=== PATIENT | female | born 1955 | race Caucasian/White ===

== ENCOUNTER 2017-08-19 13:38 | Observation (INO) ==
[2017-08-19] MEDS ORDERED: Aspirin 81 MG TAB.CHEW PO ONE (14:15)
--- NOTE | 2017-08-19 14:37 | Emergency Department Note ---
START Narrative - START START: I examined this patient and my medical decision-making was reviewed with the Resident Physician. I agree with the documented findings, disposition and treatment plan as described except to the extent set forth below. 61 year old female presents to the ED with complaints of left arm and jaw pain she has a hstory of mitral valave prolapse and aortic regurg. 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 Sakina khan she sees Dr. Pineda and that she called his office today because ofhte chest pain onset from yesterday and she was told by the nurse to come and be evaluated in the ED. peterson states that pain is still there, denies all other risk facotrs and states that she does not have exertinoal dyspnea, dispahoresis, or nasuea and vomitting with these symptoms. we ill do a cardiopulmoary workup on peterson and re-eval.
[2017-08-19] MEDS: Nitroglycerin 0.4 MG TAB.SUBL SL ONE ×2 (15:01→17:32)
[2017-08-19 15:11] LABS: Basophils % 0.7 %; Eosinophils # 0.2 K/mcL (0.0-0.6); Eosinophils % 3.8 %; Hematocrit 42.6 % (35.3-44.9); Hemoglobin 14.7 g/dL (11.5-15.4); Immature Granulocytes % 0.2 % (0-4); Lymphocytes # 1.8 K/mcL (0.6-4.6); Mean Corpuscular HGB Conc 34.5 g/dL (31.6-35.5); Mean Corpuscular Hemoglobin 30.3 pg (28.0-33.3); Mean Corpuscular Volume 87.8 fL (83.0-100.0); Mean Platelet Volume 10.8 fL (9.4-12.4); Monocytes # 0.4 K/mcL (0.0-1.3); Monocytes % 6.9 %; Neutrophils # 3.1 K/mcL (1.6-8.9); Platelet Count 187 K/mcL (140-400); Red Blood Count 4.85 M/mcL (3.82-4.97); Red Cell Distribution Width 13.5 % (11.5-14.5); Segmented Neutrophils % 56.4 %
--- NOTE | 2017-08-19 15:13 | Emergency Department Note ---
Disposition Clinical Impression: Unstable angina, Hypokalemia Disposition: Admitted As Inpatient Condition: Fair Time of Disposition: 17:12 Chest Pain HPI - General Chief Complaint: ED Chest Pain Stated Complaint: Left arm/Jaw PAin Time Seen by Provider: 08/19/17 14:10 Source: patient Limitations: no limitations Vital Signs Reviewed: Yes Nursing Notes Reviewed: Yes - History of Present Illness HPI Narrative: Patient is a 61-year-old female complains of acute onset of chest pain that started 1 week ago but has increased in frequency and intensity over the past 3 days. Patient states it comes on randomly with and without exertion. Patient states the most recent bout started this morning before 6 AM and has persisted. Patient describes the pain as pressure up her left upper chest with radiation to her left side jaw and down her left arm with numbness and tingling in her left hand. She also states that she has some episodes of chest pain with shortness of breath, nausea, vomiting. Patient denies history of mild aortic and mitral insufficiency, hypertension, hyperlipidemia, diabetes, tobacco use. Severity scale (1-10): 7 - Related Data Home Medications Medication Instructions Recorded Confirmed Albuterol Sulfate [Albuterol 2 puff IH Q4H PRN 10/13/16 08/19/17 Inhaler] Ascorbic Acid [Vitamin C] 1,000 mg PO DAILY 10/13/16 08/19/17 Butorphanol Tartrate 1 spray NS Q24H PRN 10/13/16 08/19/17 Bee Alive 1 cap PO DAILY 08/19/17 08/19/17 Calcium Carbonate [Calcium] 600 mg PO DAILY 08/19/17 08/19/17 Cholecalciferol (D-3) [Vitamin D] 5,000 unit PO DAILY 08/19/17 08/19/17 Cyanocobalamin (Vitamin B-12) 1,000 mcg PO DAILY 08/19/17 08/19/17 [Vitamin B12] EPINEPHrine [Epipen] 0.3 mg IM ONCE PRN 08/19/17 08/19/17 Ferrous Sulfate 325 mg PO DAILY 08/19/17 08/19/17 Lutein/Bilberry 1 cap PO DAILY 08/19/17 08/19/17 Magnesium Amino Acid Chelate 300 mg PO DAILY 08/19/17 08/19/17 [Magnesium] Riboflavin 400 mg PO BID 08/19/17 08/19/17 Topiramate [Trokendi Xr] 200 mg PO DAILY 08/19/17 08/19/17 Allergies Allergy/AdvReac Type Severity Reaction Status Date / Time tramadol Allergy Severe Agitated Verified 02/04/15 11:58 Cefaclor [From Ceclor] Allergy See Verified 02/04/15 11:58 Comments cephalexin [From Keflex] Allergy Rash Verified 02/04/15 11:58 codeine Allergy See Verified 02/04/15 11:58 Comments Erythromycin Base Allergy Rash Verified 02/04/15 11:58 pantoprazole Allergy Shakiness Verified 02/04/15 11:58 Penicillins [PCN] Allergy Rash Verified 02/04/15 11:58 sulfamethoxazole Allergy Rash Verified 02/04/15 11:58 [From Bactrim] terbutaline [From Brethine] Allergy See Verified 02/04/15 11:58 Comments trimethoprim [From Bactrim] Allergy Rash Verified 02/04/15 11:58 vancomycin Allergy Rash Verified 02/04/15 11:58 venom-honey bee Allergy See Verified 02/04/15 11:58 [bee venom (honey bee)] Comments All systems ED: reviewed and negative except as stated. Review of Systems: As Per HPI Constitutional: Denies: fever, chills, weakness Eyes: Denies: vision change Cardiovascular: Reports: chest pain. Denies: palpitations Respiratory: Reports: dyspnea. Denies: cough, wheezes Gastrointestinal: Reports: nausea. Denies: abdominal pain, vomiting, diarrhea Chest Pain PMH - Past Medical History Medical history: Reports: asthma, GERD, glaucoma, hypertension, migraine, valvular heart disease, other Surgical history: Reports: hysterectomy, orthopedic, other (Right arm fracture, right shoulder arthroscopy) Psychiatric history: Reports: anxiety, depression DISTRICT ADVISER history: Reports: no DISTRICT ADVISER history - Social History Smoking Status: Former smoker Alcohol use: Reports: none Drug use: Reports: none Physical Exam Vital Signs Temperature 98.3 F 08/19/17 14:03 Pulse Rate 85 08/19/17 14:03 Respiratory Rate 18 08/19/17 14:03 Blood Pressure 112/62 08/19/17 14:03 O2 Sat by Pulse Oximetry 97 08/19/17 14:03 Temperature 98.3 F 08/19/17 14:03 Pulse Rate 85 08/19/17 14:03 Respiratory Rate 18 08/19/17 14:03 Blood Pressure 112/62 08/19/17 14:03 O2 Sat by Pulse Oximetry 97 08/19/17 14:03 Oxygen Delivery Oxygen Delivery Room Air CONSTITUTIONAL: Well-appearing; well-nourished; A&O X 3, in no apparent distress. She has no conversational dyspnea. HEAD: Normocephalic; atraumatic EYES: PERRL, no scleral icterus NOSE: The nose is normal in appearance without rhinorrhea NECK: No JVD or distended neck veins RESP: Normal chest excursion with respiration; breath sounds clear and equal bilaterally; no wheezes, rhonchi, or rales CARD: Regular rhythm, without murmurs, rub or gallop Chest: Nontender to palpation ABD: Non-distended; non-tender, soft, without rigidity, rebound or guarding,no pulsatile mass SKIN: Normal for age and race; warm and dry without diaphoresis ; no apparent lesions EXTREMITIES: Pulses are 2 plus and equal times 4 extremities, no peripheral edema or calf muscle pain - General Limitations: no limitations General appearance: alert Course - Reevaluation(s) Reevaluation #1: Both the patient's labs are in, but still trying to get the patient pain-free currently 3/10. She refused nitroglycerin when my nurse tried to administer pain that her blood pressure is normally low. Her blood pressure taken and it was 96/53. So no nitroglycerin Time: 16:25 Reevaluation #2: On reevaluation, patient still has pain 3/10 but is been unable to receive any nitroglycerin secondary to hypotension at 96/53. Fluid bolus has been ordered. Patient was expressing her concern for wanted to go home secondary to all the things she has to do, but during the conversation the patient states she suffered an episode of lightheadedness. Current recommendation is for admission. Patient currently agrees with my recommendation Time: 16:37 Vital Signs Temperature 98.3 F 08/19/17 14:03 Pulse Rate 85 08/19/17 14:03 Respiratory Rate 18 08/19/17 14:03 Blood Pressure 112/62 08/19/17 14:03 O2 Sat by Pulse Oximetry 97 08/19/17 14:03 Temperature 98.3 F 08/19/17 14:03 Pulse Rate 69 02/15/18 17:55 Respiratory Rate 18 08/19/17 17:55 Blood Pressure 98/64 08/19/17 17:55 O2 Sat by Pulse Oximetry 97 08/19/17 17:55 Oxygen Delivery Oxygen Delivery Room Air Chest Pain - MDM Narrative Medical decision making narrative: He says chest pain concerning for possible ACS/MS, PE, pneumonia, pneumothorax. Patient's low risk for PE with no history of DVT or PE, cancer, hormone replacement treatment, recent surgeries or immobilization. No hemoptysis. Patient does not have pain that transmits from anterior chest or spine in a tearing quality and has no pulse deficits. Chest x-ray was negative for pneumothorax, widening mediastinum, obscuring of the aortic knob. No signs of pneumonia. With a negative troponin, labs and no other lab abnormalities other than a mildly low potassium, patient has a heart score of 2. However, patient continues to have periods of lightheadedness with chest pain. Recommendation is for admission. Patient agrees and understands this is for admission. Patient is receiving fluid bolus of 1 L normal saline to raise her blood pressure enough to treat her pain. Potassium replacement therapy has been ordered for potassium of 3.4 Tuan Vanessa the hospitalist as accepted patient for admission at 1711 hrs. - Lab Data Lab results reviewed: Yes I reviewed the patient's lab results. Lab results narrative: Short CBC 08/19/17 Range/Units 15:01 WBC 5.5 (4.3-11.1) K/mcL Hgb 14.7 (11.5-15.4) g/dL Hct 42.6 (35.3-44.9) % Plt Count 187 (140-400) K/mcL Neutrophils # 3.1 (1.6-8.9) K/mcL BMP 08/19/17 Range/Units 15:01 Sodium 142 (136-145) mEq/L Potassium 3.4 L (3.5-5.1) mEq/L Chloride 111 H (98-107) mEq/L Carbon Dioxide 25 (23-29) mEq/L BUN 17 (6-20) mg/dL Creatinine 0.72 (0.60-1.20) mg/dL Glucose 100 (70-105) mg/dL Calcium 9.4 (8.6-10.3) mg/dL Cardiac Enzymes 08/19/17 Range/Units 15:01 Troponin I < 0.03 (< 0.04) ng/mL Liver Function 08/19/17 Range/Units 15:01 Total Bilirubin 0.5 (0.3-1.0) mg/dL Direct Bilirubin 0.1 (0.0-0.2) mg/dL AST 16 (13-39) Units/L ALT 15 (7-52) Units/L Alkaline Phosphatase 73 (34-104) Units/L Albumin 3.7 (3.5-5.7) g/dL Result diagrams: 08/19/17 15:01 08/19/17 15:01 Lab Results 08/19/17 08/19/17 08/19/17 Range/Units 15:01 15:01 15:01 WBC (4.3-11.1) K/mcL RBC (3.82-4.97) M/mcL Hgb (11.5-15.4) g/dL Hct (35.3-44.9) % MCV (83.0-100.0) fL MCH (28.0-33.3) pg MCHC (31.6-35.5) g/dL RDW (11.5-14.5) % Plt Count (140-400) K/mcL MPV (9.4-12.4) fL Immature Gran % (0-4) % Seg Neutrophils % % Lymphocytes % % Monocytes % % Eosinophils % % Basophils % % Neutrophils # (1.6-8.9) K/mcL Lymphocytes # (0.6-4.6) K/mcL Monocytes # (0.0-1.3) K/mcL Eosinophils # (0.0-0.6) K/mcL Basophils # (0.0-0.2) K/mcL PT 12.0 (9.4-12.1) Seconds INR 1.1 APTT 29.2 (26.0-36.0) Seconds Sodium (136-145) mEq/L Potassium (3.5-5.1) mEq/L Chloride (98-107) mEq/L Carbon Dioxide (23-29) mEq/L BUN (6-20) mg/dL Creatinine (0.60-1.20) mg/dL Est GFR ( Amer) (> 60) Est GFR (Non-Af Amer) (> 60) BUN/Creatinine Ratio (6-26) Glucose (70-105) mg/dL Calculated Osmolality (280-300) Calcium (8.6-10.3) mg/dL Total Bilirubin 0.5 (0.3-1.0) mg/dL Direct Bilirubin 0.1 (0.0-0.2) mg/dL Indirect Bilirubin 0.4 (0.0-1.2) mg/dL AST 16 (13-39) Units/L ALT 15 (7-52) Units/L Alkaline Phosphatase 73 (34-104) Units/L Troponin I (< 0.04) ng/mL B-Natriuretic Peptide 23 (Less than 100) pg/mL Serum Total Protein 6.5 (6.4-8.9) g/dL Albumin 3.7 (3.5-5.7) g/dL Globulin 2.8 (2.4-3.5) g/dL Albumin/Globulin Ratio 1.3 (1.1-2.2) Lipase 35 (11-82) Units/L 08/19/17 08/19/17 08/19/17 Range/Units 15:01 15:01 15:01 WBC 5.5 (4.3-11.1) K/mcL RBC 4.85 (3.82-4.97) M/mcL Hgb 14.7 (11.5-15.4) g/dL Hct 42.6 (35.3-44.9) % MCV 87.8 (83.0-100.0) fL MCH 30.3 (28.0-33.3) pg MCHC 34.5 (31.6-35.5) g/dL RDW 13.5 (11.5-14.5) % Plt Count 187 (140-400) K/mcL MPV 10.8 (9.4-12.4) fL Immature Gran % 0.2 (0-4) % Seg Neutrophils % 56.4 % Lymphocytes % 32.0 % Monocytes % 6.9 % Eosinophils % 3.8 % Basophils % 0.7 % Neutrophils # 3.1 (1.6-8.9) K/mcL Lymphocytes # 1.8 (0.6-4.6) K/mcL Monocytes # 0.4 (0.0-1.3) K/mcL Eosinophils # 0.2 (0.0-0.6) K/mcL Basophils # 0.0 (0.0-0.2) K/mcL PT (9.4-12.1) Seconds INR APTT (26.0-36.0) Seconds Sodium 142 (136-145) mEq/L Potassium 3.4 L (3.5-5.1) mEq/L Chloride 111 H (98-107) mEq/L Carbon Dioxide 25 (23-29) mEq/L BUN 17 (6-20) mg/dL Creatinine 0.72 (0.60-1.20) mg/dL Est GFR ( Amer) > 60 (> 60) Est GFR (Non-Af Amer) > 60 (> 60) BUN/Creatinine Ratio 24 (6-26) Glucose 100 (70-105) mg/dL Calculated Osmolality 296 (280-300) Calcium 9.4 (8.6-10.3) mg/dL Total Bilirubin (0.3-1.0) mg/dL Direct Bilirubin (0.0-0.2) mg/dL Indirect Bilirubin (0.0-1.2) mg/dL AST (13-39) Units/L ALT (7-52) Units/L Alkaline Phosphatase (34-104) Units/L Troponin I < 0.03 (< 0.04) ng/mL B-Natriuretic Peptide (Less than 100) pg/mL Serum Total Protein (6.4-8.9) g/dL Albumin (3.5-5.7) g/dL Globulin (2.4-3.5) g/dL Albumin/Globulin Ratio (1.1-2.2) Lipase (11-82) Units/L - Radiology Data Radiology results reviewed: Yes I reviewed the patient's radiology results. Chest X-Ray 08/19/17 14:15 IMPRESSION: No acute cardiopulmonary abnormality. D/ / Maurilio Holt / Maurilio Holt Interpreting Provider: Maurilio Holt - EKG Data EKG attestation: Yes I reviewed and interpreted this EKG. EKG results narrative: EKG taken 2017 at 1424 hrs. shows sinus rhythm at a rate of 83 beats minute with no acute ST elevations or depressions, no QRS widening or QT prolongation. This is a nonischemic EKG. Previous EKG for comparison taken 119 2014 shows sinus rhythm at a rate of 74 bpm PVCs. Heart Score - Score History: Moderately Suspicious EKG: Normal Age: 45-65 Risk Factors: No risk factors known Troponin: Less than normal limit HEART Score Total: 2
[2017-08-19 15:17] LABS: INR 1.1
[2017-08-19 15:19] LABS: Activated Partial Thrombo Time 29.2 Seconds (26.0-36.0)
[2017-08-19 15:41] LABS: Albumin 3.7 g/dL (3.5-5.7); Albumin/Globulin Ratio 1.3 (1.1-2.2); Bilirubin,Direct 0.1 mg/dL (0.0-0.2); Bilirubin,Indirect 0.4 mg/dL (0.0-1.2); Bilirubin,Total 0.5 mg/dL (0.3-1.0); Globulin 2.8 g/dL (2.4-3.5); Total Protein 6.5 g/dL (6.4-8.9)
[2017-08-19 15:42] LABS: BUN/Creatinine Ratio 24 (6-26); Blood Urea Nitrogen 17 mg/dL (6-20); Calcium 9.4 mg/dL (8.6-10.3); Carbon Dioxide 25 mEq/L (23-29); Chloride 111 mEq/L (98-107); Glucose 100 mg/dL (70-105); Osmolality,Calculated 296 (280-300); Potassium 3.4 mEq/L (3.5-5.1); Sodium 142 mEq/L (136-145); eGFR For African Americans > 60 (> 60); eGFR For Non-African Americans > 60 (> 60)
[2017-08-19] MEDS ORDERED: 0.9 % Sodium Chloride 1,000 ML IVC ONE ×2 (16:26→17:28)
[2017-08-19] MEDS ORDERED: 0.9 % Sodium Chloride 1,000 ML ONE (17:29)
[2017-08-19] MEDS ORDERED: Ondansetron 4 MG/2 ML VIAL IVP PRN (21:41)
[2017-08-19] MEDS: Nitroglycerin 0.4 MG TAB.SUBL SL PRN (22:14)
[2017-08-19] MEDS ORDERED: Naloxone 0.4 MG/ML INJ IVP PRN (23:15)
[2017-08-19] MEDS ORDERED: *HR* HYDROcodone/Acet 5/325 mg TABLET PO PRN (23:15)
--- NOTE | 2017-08-19 23:28 | Internal Med History&Physical ---
Date of Encounter: 08/19/17 Time of Encounter: 22:00 Assessment and Plan (1) Chest pain Current visit: Yes Status: Acute Pt has intermittent chest pain, respond to NTG, need to r/o CAD especially ACS - Cont cardiac monitoring - Track 3 sets of troponin - Echo - Stress test in AM if troponin negative and pt has no chest pain. Qualifiers: Chest pain type: precordial pain Qualified Code(s): R07.2 - Precordial pain (2) DVT prophylaxis Current visit: Yes Status: Acute Heparin sc. (3) Hypokalemia Current visit: Yes Status: Acute K 3.4. Supplement was given. Internal Medicine - H&P: HPI Chief complaint: Chest pain Admitted From: Home Plans for Post Hospital Care: Home History of present illness: Ms. Cook is a 61 year old female with hx of Glaucoma, aortic regurgitation, mitral valve prolapse, GERD, present to ER for chest pain. Pt said she has chest pain on and off for about 10 days. Pain located on mid chest and radiates to left arm and left jaw. Pain is pressure like, 7/10, last about 30 min on every episode. Pt had 2-3 episodes of chest pain yesterday but the frequency is increasing. She c/o 4-5 episodes today. Pt has sometimes nausea and SOB with chest pain. Denies diaphoresis. Pt has no fever or cough. She was admitted to r/ o ACS. Past Med Surg Social Fam HX - Past Medical History Medical history: asthma, GERD, glaucoma, migraine, valvular heart disease Psychiatric history: anxiety, depression - Past Surgical History Surgical History: hysterectomy, orthopedic, other - Social History Smoking Status: Former smoker Smokeless Tobacco Status: No Alcohol use: none Drug use: none - Family History Mother History Unknown: Yes Internal Medicine - H&P: Meds Albuterol Sulfate [Albuterol Inhaler] 2 puff IH Q4H PRN 10/13/16 [History] Ascorbic Acid [Vitamin C] 1,000 mg PO DAILY 10/13/16 [History] Butorphanol Tartrate 1 spray NS Q24H PRN 10/13/16 [History] Bee Alive 1 cap PO DAILY 08/19/17 [History] Calcium Carbonate [Calcium] 600 mg PO DAILY 08/19/17 [History] Cholecalciferol (D-3) [Vitamin D] 5,000 unit PO DAILY 08/19/17 [History] Cyanocobalamin (Vitamin B-12) [Vitamin B12] 1,000 mcg PO DAILY 08/19/17 [History ] EPINEPHrine [Epipen] 0.3 mg IM ONCE PRN 08/19/17 [History] Ferrous Sulfate 325 mg PO DAILY 08/19/17 [History] Lutein/Bilberry 1 cap PO DAILY 08/19/17 [History] Magnesium Amino Acid Chelate [Magnesium] 300 mg PO DAILY 08/19/17 [History] Riboflavin 400 mg PO BID 08/19/17 [History] Topiramate [Trokendi Xr] 200 mg PO DAILY 08/19/17 [History] 3 Allergy/AdvReac Type Severity Reaction Status Date / Time tramadol Allergy Severe Agitated Verified 02/04/15 11:58 Cefaclor [From Ceclor] Allergy See Verified 02/04/15 11:58 Comments cephalexin [From Keflex] Allergy Rash Verified 02/04/15 11:58 codeine Allergy See Verified 02/04/15 11:58 Comments Erythromycin Base Allergy Rash Verified 02/04/15 11:58 pantoprazole Allergy Shakiness Verified 02/04/15 11:58 Penicillins [PCN] Allergy Rash Verified 02/04/15 11:58 sulfamethoxazole Allergy Rash Verified 02/04/15 11:58 [From Bactrim] terbutaline [From Brethine] Allergy See Verified 02/04/15 11:58 Comments trimethoprim [From Bactrim] Allergy Rash Verified 02/04/15 11:58 vancomycin Allergy Rash Verified 02/04/15 11:58 venom-honey bee Allergy See Verified 02/04/15 11:58 [bee venom (honey bee)] Comments All Systems PM: A 10-system review of systems was performed and is negative for pertinent findings except as documented above in the HPI. - Constitutional Vitals: Temp Pulse Resp BP Pulse Ox 97.6 F 69 18 101/68 94 08/19/17 21:44 08/19/17 22:29 08/19/17 21:44 08/19/17 22:29 08/19/17 21:44 General appearance: Present: A&O X 3, no acute distress, answers questions appropriately - Head Head exam: Present: atraumatic, normocephalic - Eye Eye exam: Present: PERRL, conjuntiva pink, sclera anicteric Pupils: Present: PERRL - Neck Neck exam general surgery: Present: supple, trachea midline. Absent: lymphadenopathy - Respiratory Respiratory exam: Present: chest wall tenderness (Mild chest wall tenderness on mid/left chest), CTAB. Absent: accessory muscle use, rales, rhonchi, wheezes - Cardiovascular Cardiovascular exam: Present: RRR, +S1, +S2. Absent: diastolic murmur, gallop, rubs, systolic murmur - GI/Abdominal GI/Abdominal exam: Present: normal bowel sounds, soft, no peritoneal signs. Absent: distended, tenderness - Extremities Exam Extremities exam: Present: warm, radial pulses palpable and symmetrical. Absent : calf tenderness, cyanotic, pedal edema - Neurological Exam Neurological exam: Present: CN II-XII intact, oriented X3, no focal deficits. Absent: pronater drift, facial droop, speech deficit - Skin Skin exam: Present: dry, intact Internal Med - H&P Results - Labs CBC & Chem 7: 08/19/17 15:01 08/19/17 15:01 Labs: Cardiac Enzymes 08/19/17 Range/Units 22:09 Troponin I < 0.03 (< 0.04) ng/mL - EKG Data -: EKG Interpreted by Myself EKG shows normal: sinus rhythm Rate: normal
[2017-08-19] MEDS ORDERED: Acetaminophen 325 MG TABLET PO PRN (23:55)
[2017-08-20 03:31] LABS: Basophils % 0.9 %; Eosinophils # 0.3 K/mcL (0.0-0.6); Eosinophils % 5.6 %; Hematocrit 37.9 % (35.3-44.9); Immature Granulocytes % 0.2 % (0-4); Lymphocytes # 1.8 K/mcL (0.6-4.6); Lymphocytes % 39.5 %; Mean Corpuscular Hemoglobin 30.5 pg (28.0-33.3); Mean Corpuscular Volume 89.6 fL (83.0-100.0); Mean Platelet Volume 11.2 fL (9.4-12.4); Monocytes # 0.3 K/mcL (0.0-1.3); Monocytes % 7.6 %; Neutrophils # 2.1 K/mcL (1.6-8.9); Platelet Count 140 K/mcL (140-400); Red Blood Count 4.23 M/mcL (3.82-4.97); Red Cell Distribution Width 13.8 % (11.5-14.5); Segmented Neutrophils % 46.2 %
[2017-08-20 03:34] LABS: Hemoglobin 12.9 g/dL (11.5-15.4)
[2017-08-20 04:07] LABS: BUN/Creatinine Ratio 22 (6-26); Blood Urea Nitrogen 14 mg/dL (6-20); Calcium 8.3 mg/dL (8.6-10.3); Carbon Dioxide 19 mEq/L (23-29); Chloride 118 mEq/L (98-107); Glucose 94 mg/dL (70-105); Magnesium 2.1 mg/dL (1.6-2.6); Osmolality,Calculated 292 (280-300); Potassium 4.3 mEq/L (3.5-5.1); Sodium 141 mEq/L (136-145); eGFR For African Americans > 60 (> 60); eGFR For Non-African Americans > 60 (> 60)
[2017-08-20] MEDS ORDERED: *HR* Heparin 5,000 UNIT/ML VIAL SQ SCH (06:00)
[2017-08-20] MEDS ORDERED: Regadenoson 0.4 MG/5 ML SYRINGE IVP ONE (06:40)
[2017-08-20] MEDS ORDERED: Aspirin Enteric Coated 81 MG Tablet PO SCH (09:00)
[2017-08-20] MEDS ORDERED: Topiramate 100 MG TABLET PO SCH (09:00)
[2017-08-20] MEDS ORDERED: Ascorbic Acid 500 MG TABLET PO SCH (09:00)
--- NOTE | 2017-08-20 09:16 | Internal Med Progress Note ---
Date of Encounter: 08/20/17 Time of Encounter: 09:13 - Assessment and plan (1) Obesity Current Visit: Yes Status: Chronic Qualifiers: Obesity type: due to excess calories Obesity classification: adult class 2 (BMI 35 - 39.9) Serious obesity comorbidity presence: without serious comorbidity Body mass index: unspecified BMI Qualified Code(s): E66.09 - Other obesity due to excess calories (2) Hypokalemia Current Visit: Yes Status: Acute Assessment and plan: Resolved (3) Chest pain Current Visit: Yes Status: Acute Assessment and plan: Chest and troponin so far is negative nuclear stress test completed result is pending we will keep nothing by mouth until results is completed Qualifiers: Chest pain type: precordial pain Qualified Code(s): R07.2 - Precordial pain - Subjective Interval history: Patient with history of aortic regurgitation, mitral valve prolapse, GERD, presents with recurrent chest pain for about a week sometime last about 30 minutes no relationship to activityvv troponin so far is negative procedure return from nuclear stress test result is pending - Constitutional Vitals: Temp Pulse Resp BP Pulse Ox 97.7 F 66 16 106/64 93 08/20/17 03:52 08/20/17 03:52 08/20/17 03:52 08/20/17 03:52 08/20/17 03:52 General appearance: Present: A&O X 3, no acute distress, answers questions appropriately - Head Head exam: Present: atraumatic, normocephalic - Eye Eye exam: Present: PERRL, conjuntiva pink, sclera anicteric Pupils: Present: PERRL - Neck Neck exam general surgery: Present: supple, trachea midline. Absent: lymphadenopathy - Respiratory Respiratory exam: Present: CTAB. Absent: accessory muscle use, rales, rhonchi, wheezes - Cardiovascular Cardiovascular exam: Present: RRR, +S1, +S2. Absent: diastolic murmur, gallop, rubs, systolic murmur - GI/Abdominal GI/Abdominal exam: Present: normal bowel sounds, soft, no peritoneal signs. Absent: distended, tenderness - Extremities Exam Extremities exam: Present: warm, radial pulses palpable and symmetrical. Absent : calf tenderness, cyanotic, pedal edema - Neurological Exam Neurological exam: Present: CN II-XII intact, oriented X3, no focal deficits. Absent: pronater drift, facial droop, speech deficit - Skin Skin exam: Present: dry, intact Internal Medicine: Result - Labs CBC & Chem 7: 08/20/17 03:18 08/20/17 03:18 Labs: Short CBC 08/20/17 Range/Units 03:18 WBC 4.5 (4.3-11.1) K/mcL Hgb 12.9 D (11.5-15.4) g/dL Hct 37.9 (35.3-44.9) % Plt Count 140 (140-400) K/mcL Neutrophils # 2.1 (1.6-8.9) K/mcL BMP 08/20/17 03:18 Sodium 141 Potassium 4.3 D Chloride 118 H Carbon Dioxide 19 L BUN 14 Creatinine 0.63 Glucose 94 Calcium 8.3 L Cardiac Enzymes 08/19/17 08/20/17 Range/Units 22:09 03:18 Troponin I < 0.03 < 0.03 (< 0.04) ng/mL - ABG Interpretation ABG results: PT/INR, D-dimer PT 12.0 Seconds (9.4-12.1) 08/19/17 15:01 Consult Discharge Plan - Plan Referrals: Jade Marx MD [Primary Care Provider] -
[2017-08-20] MEDS: Nitroglycerin 0.4 MG TAB.SUBL SL PRN (12:20)
[2017-08-20 12:26] VITALS: BP 96/64
--- NOTE | 2017-08-20 13:59 | Discharge Summary ---
Date of Encounter: 08/20/17 Time of Encounter: 13:56 - Discharge Diagnosis (1) Obesity Priority: Secondary Status: Chronic Qualifiers: Obesity type: due to excess calories Obesity classification: adult class 2 (BMI 35 - 39.9) Serious obesity comorbidity presence: without serious comorbidity Body mass index: unspecified BMI Qualified Code(s): E66.09 - Other obesity due to excess calories (2) Hypokalemia Priority: Secondary Status: Acute (3) Chest pain Priority: Primary Status: Acute Comments: Chest pain nuclear stress test EF 64% negative for ischemia Qualifiers: Chest pain type: precordial pain Qualified Code(s): R07.2 - Precordial pain - Discharge Medications Home Medications: Albuterol Sulfate [Albuterol Inhaler] 2 puff IH Q4H PRN 10/13/16 [History] Ascorbic Acid [Vitamin C] 1,000 mg PO DAILY 10/13/16 [History] Butorphanol Tartrate 1 spray NS Q24H PRN 10/13/16 [History] Bee Alive 1 cap PO DAILY 08/19/17 [History] Calcium Carbonate [Calcium] 600 mg PO DAILY 08/19/17 [History] Cholecalciferol (D-3) [Vitamin D] 5,000 unit PO DAILY 08/19/17 [History] Cyanocobalamin (Vitamin B-12) [Vitamin B12] 1,000 mcg PO DAILY 08/19/17 [History ] EPINEPHrine [Epipen] 0.3 mg IM ONCE PRN 08/19/17 [History] Ferrous Sulfate 325 mg PO DAILY 08/19/17 [History] Lutein/Bilberry 1 cap PO DAILY 08/19/17 [History] Magnesium Amino Acid Chelate [Magnesium] 300 mg PO DAILY 08/19/17 [History] Riboflavin 400 mg PO BID 08/19/17 [History] Topiramate [Trokendi Xr] 200 mg PO DAILY 08/19/17 [History] Allergies/Adverse Reactions: 3 Allergy/AdvReac Type Severity Reaction Status Date / Time tramadol Allergy Severe Agitated Verified 02/04/15 11:58 Cefaclor [From Ceclor] Allergy See Verified 02/04/15 11:58 Comments cephalexin [From Keflex] Allergy Rash Verified 02/04/15 11:58 codeine Allergy See Verified 02/04/15 11:58 Comments Erythromycin Base Allergy Rash Verified 02/04/15 11:58 pantoprazole Allergy Shakiness Verified 02/04/15 11:58 Penicillins [PCN] Allergy Rash Verified 02/04/15 11:58 sulfamethoxazole Allergy Rash Verified 02/04/15 11:58 [From Bactrim] terbutaline [From Brethine] Allergy See Verified 02/04/15 11:58 Comments trimethoprim [From Bactrim] Allergy Rash Verified 02/04/15 11:58 vancomycin Allergy Rash Verified 02/04/15 11:58 venom-honey bee Allergy See Verified 02/04/15 11:58 [bee venom (honey bee)] Comments Procedures/tests Complete & Pending: Procedures Performed prior 72 hours Category Date Time Status NM siddharth perf SPECT multi [NM] Routine Exams 08/20/17 05:35 Taken EV echocardiogram Routine Y 08/19/17 23:21 Ordered SP pharm nuclear stress Routine Y 08/20/17 07:15 Completed Date of admission: 08/19/17 18:22 Primary care physician: Jade Marx MD Discharging clinician: [place] Fournier Anticipated date of discharge: 08/20/17 - Patient Status Disposition: Home, Self-Care Condition: Good Functional capacity at discharge: independent ambulation Overall status at discharge: patient is back to baseline - Discharge Instructions - Diet and Activity Activity: other Diet: advance to your usual diet Hospital course: Ms. Cook is a 61 year old female - Time Spent with Patient Total time spent providing and/or coordinating discharge services: - Constitutional Vitals: Temp Pulse Resp BP Pulse Ox 98.3 F 75 20 96/64 94 08/20/17 12:23 08/20/17 12:25 08/20/17 12:23 08/20/17 12:25 08/20/17 12:23 General appearance: Present: A&O X 3, no acute distress, answers questions appropriately
--- NOTE | 2017-08-22 11:31 | Electrocardiograph Report ---
[place] [address] Test Date: 2017-08-19 Pat Name: Tiera Cook Department: [id number] Room: 3A63 Gender: F Real Estate Inspector: MILVIA : 1955 Requested By: Shanti Fernandes Order Number: [id number] Reading MD: Telma Sibley Measurements Intervals [place] Rate: 83 P: 57 IA: 164 QRS: -23 QRSD: 82 T: 53 QT: 328 QTc: 367 Interpretive Statements SINUS RHYTHM BORDERLINE LEFT AXIS DEVIATION VOLTAGE CRITERIA FOR LVH Electronically Signed On 08-22-2017 11:29:59 EST by Telma Sibley
== END 2017-08-20 16:29 | disposition home or self-care (01) ==
LOC: 3ANU 13:38 → EMEROO 13:38 → 3ANU 18:41
PROVIDERS: ADMIT Internal Medicine; ATTEND Internal Medicine